=== PATIENT | male | born 1995 | race Caucasian/White ===

== ENCOUNTER 2016-06-08 03:41 | Emergency (ER) | payer OTHER ==
[2016-06-08] MEDS ORDERED: AMOXICILLIN TRIHYDRATE 500 MG CAPSULE PO ONE (05:15)
[2016-06-08] MEDS ORDERED: DEXAMETHASONE SOD PHOS INJ 10 MG/1 ML VIAL IM ONE (05:15)
--- NOTE | 2016-06-08 05:18 | ER Document Report ---
HPI - HPI Patient complains to provider of: sore throat Pain Level: 3 Context: Patient is a 21-year-old male that comes emergency department for chief complaint of sore throat since this morning, he states that he has developed fever and chills and a worsening sore throat with pain in the front of his neck. Congestion, cough, abdominal pain, nausea or vomiting. He denies any daily medications. He cannot recall any obvious sick contacts. - CONSTITUTIONAL Constitutional: REPORTS: Fever, Chills - EENT EENT: REPORTS: Sore Throat, Congestion. DENIES: Ear Pain, Nasal Drainage-Clear , Nasal Drainage-Purulent, Eye problems - NEURO Neurology: REPORTS: Headache. DENIES: Weakness, Vision blurred, Dizzinesss / Vertigo - CARDIOVASCULAR Cardiovascular: DENIES: Chest pain - RESPIRATORY Respiratory: REPORTS: Coughing. DENIES: Trouble Breathing - GASTROINTESTINAL Gastrointestinal: DENIES: Abdominal Pain, Nausea, Patient vomiting, Diarrhea, Constipation, Black / Bloody Stools - URINARY Urinary: DENIES: Dysuria, Urgency, Frequency - MUSCULOSKELETAL Musculoskeletal: DENIES: Extremity pain, Back Pain, Neck Pain, Swelling - DERM Skin Color: Normal, [place] Skin Problems: None - NURSING COMMENTS Comment: Pt presents to ED with c/o sore throat, fever, congestion, and headache x24 hours. Lungs are CTA, throat is red and swollen. Pt is awake and alert, speaking in full sentences, breathing even and unlabored. Past Medical History - General Information source: Patient - Social History Smoking Status: Never Smoker Chew tobacco use (# tins/day): No Frequency of alcohol use: Occasional Drug Abuse: None Lives with: Family Family History: Reviewed & Not Pertinent Patient has suicidal ideation: No Patient has homicidal ideation: No - Medical History Medical History: Negative Renal/ Medical History: Denies: Hx Peritoneal Dialysis Surgical Hx: Negative - Immunizations Hx Diphtheria, Pertussis, Tetanus Vaccination: Yes Vertical Provider Document - CONSTITUTIONAL General Appearance: WD/WN, No Apparent Distress - INFECTION CONTROL TRAVEL OUTSIDE OF THE [place] IN LAST 30 DAYS: No - HEENT HEENT: Atraumatic, Normocephalic, Pharyngeal Tenderness. negative: Pharyngeal Exudate - Tonsils are somewhat swollen and enlarged but no exudates noted; no peritonsillar abscess noted, airway patent - NECK Neck: Other - Patient has bilateral anterior cervical lymphadenopathy, no swelling of the submandibular tissues - RESPIRATORY Respiratory: Breath Sounds Normal, No Respiratory Distress O2 Sat by Pulse Oximetry: 95 - CARDIOVASCULAR Cardiovascular: Regular Rate, Regular Rhythm - GI/ABDOMEN Gastrointestinal: Abdomen Soft, Abdomen Non-Tender - BACK Back: Normal Inspection - MUSCULOSKELETAL/EXTREMETIES Musculoskeletal/Extremeties: MAEW, FROM, Non-Tender - NEURO Level of Consciousness: Awake, Alert, Appropriate Motor/Sensory: No Motor Deficit, No Sensory Deficit Course - Re-evaluation Re-evalutation: Swab is still pending, performed by triage, however patient has tonsillitis, lymphadenopathy, fever, no cough. Discussed with patient that he still could have a viral illness, however after discussion patient requests to be treated and will be treated with dexamethasone, amoxicillin, patient also given work release note for extended days in case he has mono (has mild upper abd tenderness on exam, no splenomegaly). Discussed precautions in case he does have mono. Patient states understanding and agreement. - Vital Signs Vital signs: Temp Pulse Resp BP Pulse Ox 98.9 F 98 18 123/69 95 06/08/16 03:48 06/08/16 03:48 06/08/16 03:48 06/08/16 03:48 06/08/16 03:48 Discharge - Discharge Clinical Impression: Lymphadenopathy Pharyngitis Qualifiers: Pharyngitis/tonsillitis etiology: unspecified etiology Qualified Code(s): J02.9 - Acute pharyngitis, unspecified Fever Qualifiers: Fever type: unspecified Qualified Code(s): R50.9 - Fever, unspecified Condition: Stable Disposition: HOME, SELF-CARE Additional Instructions: Your examination is suggestive of strep but this also could be mono. Rest, hydrate, take ibuprofen for fever and pain. You're being covered for strep with amoxicillin. Follow-up with primary care. Return to emergency department for any concerning or worsening symptoms. Prescriptions: Amoxicillin Trihydrate [Amoxil 500 mg Capsule] 500 mg PO TID #30 cap Forms: Return to Work
[2016-06-08 05:41] VITALS: BP 121/65
== END 2016-06-08 05:42 | disposition home or self-care (01) ==
LOC: ER 03:41
DX: J03.90 Acute tonsillitis, unspecified (principal); R50.9 Fever, unspecified; R51 Headache; J35.1 Hypertrophy of tonsils; R59.0 Localized enlarged lymph nodes
CPT/HCPCS: 99283; 96372; 87070; 87880; J1100